=== PATIENT | male | born 1985 ===

== ENCOUNTER 2018-07-09 12:11 | Emergency (ER) | payer SELFPAY ==
[2018-07-09 12:34] VITALS: BP 136/94
--- NOTE | 2018-07-09 13:21 | Emergency Department Report ---
ED Laceration HPI - HPI Chief Complaint: Wound/Laceration Stated Complaint: CUT ON HEAD Time Seen by Provider: 07/09/18 13:08 Occurred When: Today Location: Head Severity: moderate Tetanus Status: Up to Date Laceration Symptoms: Yes Pain, No Foreign Body Sensation, No Numbness, No Weakness Other History: 33-year-old male accidentally tripped and fell while on the stairs, hitting the top of his head resulting in a laceration presents emergency department for further evaluation of his laceration and treatment recommendations. Reports no loss of consciousness, headache, dizziness, neck pain, nausea, vomiting. The process. He did hit his tooth, which is tooth #9 became dislodged. However, he was unable to find. Reports occasional bleeding from his tooth for months, once pertaining the accident occurred about 3 hours ago ED Review of Systems ROS: Stated complaint: CUT ON HEAD Other details as noted in HPI Constitutional: denies: chills, fever Eyes: denies: eye pain, eye discharge, vision change ENT: denies: ear pain, throat pain Respiratory: denies: cough, shortness of breath, wheezing Cardiovascular: denies: chest pain, palpitations Endocrine: no symptoms reported Gastrointestinal: denies: abdominal pain, nausea, diarrhea Genitourinary: denies: urgency, dysuria Musculoskeletal: denies: back pain, joint swelling, arthralgia Skin: other (laceration). denies: rash, lesions Neurological: denies: headache, weakness, paresthesias Psychiatric: denies: anxiety, depression Hematological/Lymphatic: denies: easy bleeding, easy bruising ED Past Medical Hx - Past Medical History Previous Medical History?: No - Surgical History Past Surgical History?: No - Social History Smoking Status: Current Every Day Smoker Substance Use Type: None - Medications Home Medications: Home Medications Medication Instructions Recorded Confirmed Last Taken Type Amoxicillin 500 mg PO TID #21 capsule 07/09/18 Unknown Rx Chlorhexidine Gluconate [Hibiclens] 10 ml TP BID #240 liquid 07/09/18 Unknown Rx Chlorhexidine Mouthwash [Peridex] 15 ml MM BID #1 bottle 07/09/18 Unknown Rx Laceration Physical Exam - Exam General: Vital signs noted. No distress. Alert and acting appropriately. Wound Length (cm): 5 Laceration Location: Other (no intraoral laceration. Tooth #9 is missing. No remnants were visualized. No no gingival laceration was appreciated. Airway is patent. Tongue and uvula normal size.) Full Body Front + Back: 1 - Linear laceration Laceration Exam: Yes Normal Distal CMS, No Foreign Body, No Exposed Tendon, Vessel, or Nerve, No Tendon Injury ED Course Vital Signs 07/09/18 12:31 Temperature 98.1 F Pulse Rate 98 H Respiratory 18 Rate Blood Pressure 136/94 O2 Sat by Pulse 96 Oximetry - Laceration /Wound Repair Head Wound Location: head Wound's Depth, Shape: linear Wound Explored: clean Betadine Prep?: No (chlorhexidine) Anesthesia: 1% Lidocaine Number of Sutures: 4 (shahid placed) Sterile Dressing Applied?: Yes Critical care attestation.: If time is entered above; I have spent that time in minutes in the direct care of this critically ill patient, excluding procedure time. ED Disposition Clinical Impression: Laceration of scalp, Teeth missing due to trauma Disposition: DC-01 TO HOME OR SELFCARE Is pt being admited?: No Does the pt Need Aspirin: No Condition: Stable Instructions: Laceration (ED), Suture Care (ED), Acute dental trauma (ED) Referrals: PRIMARY CARE, [Primary Care Provider] - 3-5 Days [facility] [Provider Group] - 3-5 Days (Evaluation for staple removal in 5 days)
[2018-07-09] MEDS ORDERED: TRIPLE ANTIBIOTIC TP STA (13:24)
[2018-07-09] MEDS ORDERED: TRIPLE ANTIBIOTIC TP ONE (13:28)
== END 2018-07-09 13:37 | disposition home or self-care (01) ==
LOC: ED 12:11
DX: S01.01XA Laceration without foreign body of scalp, initial encounter (principal); S02.5XXA Fracture of tooth (traumatic), initial encounter for closed fracture; F17.200 Nicotine dependence, unspecified, uncomplicated; W01.0XXA Fall on same level from slipping, tripping and stumbling without subsequent striking against object, initial encounter; Y93.89 Activity, other specified; Y99.8 Other external cause status; Y92.89 Other specified places as the place of occurrence of the external cause
CPT/HCPCS: 99282; A6250